=== PATIENT | female | born 1985 | race African-American/Black ===

== ENCOUNTER 2018-09-09 21:34 | Emergency (ER) | payer SELFPAY ==
[~2018-09-09] VITALS: Ht 165.1 cm; Wt 91.9 kg
[2018-09-09 21:43] VITALS: BP 129/83; Ht 165.1 cm; Wt 91.9 kg
== END 2018-09-09 22:36 | disposition home or self-care (01) ==
LOC: ED 21:34
DX: J06.9 Acute upper respiratory infection, unspecified (principal); H10.9 Unspecified conjunctivitis; H65.91 Unspecified nonsuppurative otitis media, right ear
CPT/HCPCS: J1100